=== PATIENT | female | born 1970 | race Caucasian/White ===

== ENCOUNTER 2017-10-30 17:36 | Emergency (ER) | payer OTHER, MEDICAID ==
[~2017-10-30] VITALS: Ht 149.9 cm; Wt 72.6 kg
[2017-10-30 17:41] VITALS: BP 117/75
--- NOTE | 2017-10-30 17:41 | NUR ---
PT BIBA TO BED 4
--- NOTE | 2017-10-30 17:41 | NUR ---
PT PLACED IN BED 4 BY EMS.
--- NOTE | 2017-10-30 17:45 | NUR ---
PT BIBA FROM THE [facility], PT WAS EATING PANDA EXPRESS WHEN SHE BEGAN CHOKING FOR APPOXIMATELY 1 MIN; MOTHER PERFORMED HEMLICH MANUEVER AND FOOD WAS DISLODGED; PT IS A HER NORMAL BASELINE PER FAMILY.HX SEIZURES, DEVELOPMENTAL DISORDER.
--- NOTE | 2017-10-30 17:46 | NUR ---
MOTHER AT BEDSIDE.
[2017-10-30 18:05] VITALS: BP 117/75
--- NOTE | 2017-10-30 18:05 | NUR ---
Patient discharged with v/s stable. Written and verbal after care instructions given and explained. Patient verbalized understanding. Ambulatory with steady gait. All questions addressed prior to discharge. Advised to follow up with PMD.
== END 2017-10-30 18:05 | disposition home or self-care (01) ==
LOC: MED 17:36
DX: R09.89 Other specified symptoms and signs involving the circulatory and respiratory systems (principal); Z88.0 Allergy status to penicillin
CPT/HCPCS: 99283